=== PATIENT | female | born 1960 | race African-American/Black ===

== ENCOUNTER 2024-12-29 17:06 | Emergency (ER) | payer BC, MEDICAID ==
[~2024-12-29] VITALS: Ht 165.1 cm; Wt 75.0 kg
[2024-12-29 17:29] VITALS: O2SAT 100
[2024-12-29 18:32] LABS: BASOPHILS % 0.4 % (0.0-2.0); EOSINOPHILS % 2.1 % (0.0-5.0); HEMATOCRIT. 37.5 % (36.0-48.0); HEMOGLOBIN. 12.4 g/dL (12.0-16.0); MEAN CORPUSCULAR HEMOGLOBIN 29.9 pg (28.0-32.0); MEAN CORPUSCULAR HGB CONC 33.1 g/dL (31.0-37.0); MEAN CORPUSCULAR VOLUME 90.5 fL (81.0-99.0); MEAN PLATELET VOLUME 7.1 fl (7.4-10.4); MONOCYTES % 6.7 % (2.0-8.0); NEUTROPHILS % 65.8 % (40.0-76.0); PLATELET 230 x1000/uL (130-400); RED BLOOD CELL COUNT 4.15 mill/uL (4.2-5.4); RED CELL DISTRIBUTION WIDTH 13.6 % (11.6-14.6); WHITE BLOOD COUNT 5.1 x1000/uL (4.5-11.0)
[2024-12-29 18:42] LABS: PARTIAL THROMBOPLASTIN TIME 27.8 sec (23.4-31.0); PROTHROMBIN TIME 10.5 sec (9.6-11.0)
[2024-12-29 18:46] LABS: CHLORIDE 107 mEq/L (98-107); POTASSIUM 3.8 mEq/L (3.5-5.1); SODIUM 143 mEq/L (136-145)
[2024-12-29 18:47] LABS: CALCIUM 9.4 mg/dL (8.7-10.4); CARBON DIOXIDE 28 mEq/L (21-32)
[2024-12-29 18:52] LABS: CREATININE 0.9 mg/dL (0.6-1.0)
[2024-12-29 18:53] LABS: GLUCOSE 89 mg/dL (70-105); UREA NITROGEN BLOOD 13 mg/dL (9-23)
[2024-12-29 18:57] LABS: TROPONIN I HIGH SENSITIVITY < 4 ng/L (3.0-34)
[2024-12-29] MEDS ORDERED: TOPUD PO (19:12)
[2024-12-29] MEDS ORDERED: METH-653 MT (19:12)
[2024-12-29] MEDS ORDERED: IBUP-2028 MT (19:12)
[2024-12-29] MEDS ORDERED: LIDO700A15 TP (19:12)
[2024-12-29] MEDS: KETOROLAC 15MG/ML VIAL IV ONE (19:32)
[2024-12-29] MEDS: ACETAMINOPHEN 325MG TABLET PO ONE (19:32)
[2024-12-29 20:04] VITALS: BP 120/73; PULSE 75; RESP 19; TEMP 36.8; O2SAT 100
== END 2024-12-29 20:33 | disposition home or self-care (01) ==
LOC: ER 17:06
DX: S80.02XA Contusion of left knee, initial encounter (principal); S40.012A Contusion of left shoulder, initial encounter; E78.00 Pure hypercholesterolemia, unspecified; M17.12 Unilateral primary osteoarthritis, left knee; X58.XXXA Exposure to other specified factors, initial encounter; Y93.89 Activity, other specified; Y92.89 Other specified places as the place of occurrence of the external cause; Y99.8 Other external cause status
CPT/HCPCS: 99285; 96374; 70450; 71045; 80048; 83880; 85025; 85610; 85730; 84484; 36415; 72100; 72170; 73030; 73562; 93005; J1885; A4606

== ENCOUNTER 2025-03-04 11:39 | Emergency (ER) | payer BC, MEDICAID ==
[~2025-03-04] VITALS: Ht 157.5 cm; Wt 70.0 kg
[~2025-03-04 11:39] MED LIST: IBUP-2028 MT; LIDO-53 TP; METH-653 MT; TOPUD PO
[2025-03-04 11:56] VITALS: O2SAT 99
[2025-03-04] MEDS: DIPHENHYDRAMINE 50MG/ML VIAL IV ONE (13:47)
[2025-03-04] MEDS: KETOROLAC 30MG/ML VIAL IV ONE (13:47)
[2025-03-04] MEDS: DEXAMETHASONE 4MG/ML 1ML VIAL IV ONE (13:50)
[2025-03-04] MEDS: PROCHLORPERAZINE 10MG/2ML VIAL IV ONE (13:52)
[2025-03-04] MEDS: SUMATRIPTAN SUCCINATE 6MG/0.5ML VIAL SUBCUT ONE (13:55)
[2025-03-04 16:54] VITALS: BP 112/64; PULSE 70; RESP 12; TEMP 36.5; O2SAT 100
== END 2025-03-04 16:55 | disposition home or self-care (01) ==
LOC: ER 11:39
DX: G43.909 Migraine, unspecified, not intractable, without status migrainosus (principal); I10 Essential (primary) hypertension; E78.00 Pure hypercholesterolemia, unspecified; Z98.51 Tubal ligation status; Z90.49 Acquired absence of other specified parts of digestive tract; Z79.899 Other long term (current) drug therapy
CPT/HCPCS: 99284; 96374; 96375; 96372; J1885; J1100; J1200; J0780; J3030